=== PATIENT | female | born 1980 | race African-American/Black ===

== ENCOUNTER 2019-10-08 20:56 | Emergency (ER) | payer BC ==
[~2019-10-08] VITALS: Ht 170.2 cm; Wt 72.7 kg
[2019-10-08 22:32] LABS: HEMATOCRIT 36.9 % (37.0-47.0); HEMOGLOBIN 11.3 g/dl (12.0-16.0); IMMATURE GRANULOCYTES 0.1 % (0.0-5.0); MEAN CELL VOLUME 80.4 fL CALC (80.0-100.0); MEAN CORPUSCULAR HGB 24.6 pG CALC (26.0-32.0); MEAN CORPUSCULAR HGB CONC 30.6 g/dL CAL (32.0-36.0); NEUT# 4.63 thou/uL (2.00-7.15); RED BLOOD COUNT 4.59 mill/uL (4.20-5.60); RED CELL DISTRI WIDTH 16.4 % (11.5-15.5)
[2019-10-08 22:35] LABS: URINE BILIRUBIN - DIPSTICK NEGATIVE (NEGATIVE); URINE BLOOD DIPSTICK TRACE-INTACT (NEGATIVE); URINE COLOR YELLOW; URINE GLUCOSE - DIPSTICK NEGATIVE (NEGATIVE); URINE KETONE TRACE mg/dL (NEGATIVE); URINE LEUK ESTERASE NEGATIVE (NEGATIVE); URINE NITRITE - DIPSTICK NEGATIVE (Negative); URINE PH 5.5 (4.5-8.0); URINE PROTEIN - DIPSTICK NEGATIVE (NEG-TRACE); URINE SPECIFIC GRAVITY >=1.030; URINE UROBILINOGEN - DIPSTICK 0.2 E.U./dL (0.2)
[2019-10-08 22:51] LABS: ALBUMIN 4.5 g/dL (3.2-5.0); ALKALINE PHOSPHATASE 60 u/l (38-126); ANION GAP 10 (6-22 (CALC)); BILIRUBIN, TOTAL 0.4 mg/dL (0.0-1.4); BUN 17 mg/dL (7-17); BUN/CREATININE RATIO 19 (12-20 (CALC)); CARBON DIOXIDE 27 mmol/l (22-30); CHLORIDE 105 mmol/l (95-108); CREATININE 0.9 mg/dL (0.5-1.0); GFR > 60 ML/MIN (>=60 (CALC)); GFR FOR AFR.AMER. > 60 ML/MIN (>=60 (CALC)); POTASSIUM 3.8 mmol/l (3.5-5.1); SGOT/AST 23 u/l (14-36); SODIUM 137 mmol/l (137-146)
[2019-10-09 00:10] VITALS: BP 111/71
== END 2019-10-09 00:10 | disposition home or self-care (01) | DRG 103 ==
LOC: ED 20:56
DX: G43.809 Other migraine, not intractable, without status migrainosus (principal)

== ENCOUNTER 2022-07-17 22:15 | Emergency (ER) | payer OTHER ==
[~2022-07-17] VITALS: Ht 170.2 cm; Wt 76.8 kg
[2022-07-17 22:38] VITALS: BP 157/97
[2022-07-17 22:45] VITALS: BP 154/103
[2022-07-17 23:00] VITALS: BP 170/103
[2022-07-17 23:45] VITALS: BP 161/101
[2022-07-18] VITALS: BP 148/87
[2022-07-18 00:15] VITALS: BP 154/89
[2022-07-18 00:30] VITALS: BP 139/83
[2022-07-18 00:45] VITALS: BP 144/87
[2022-07-18 01:00] VITALS: BP 151/96
[2022-07-18 01:01] VITALS: BP 151/96
== END 2022-07-18 01:21 | DRG 156 ==
LOC: ED 22:15
DX: S02.2XXA Fracture of nasal bones, initial encounter for closed fracture (principal); Y04.0XXA Assault by unarmed brawl or fight, initial encounter